=== PATIENT | male | born 1975 | race Two or more races ===

== ENCOUNTER → 2016-09-18 | Outpatient (CLI) | payer BC ==
--- NOTE | 2016-09-18 16:57 | RAD ---
Scrotal ultrasound 09/18/2016 Clinical history: Hematuria. Technique: Using a combination of real-time ultrasound imaging and color-flow and pulse upper imaging techniques, duplex evaluation of the scrotal sac and its contents was entered. Multiple images were obtained. Findings: Both testicles are within normal limits in size and echogenicity. The right testicle measures 4.4 x 3.4 x 2.2 cm in longitudinal, transverse, and AP dimensions. The left testicle measures 4.3 x 3.3 x 2.2 cm in size. No focal abnormality of either testicle is seen. Normal color flow and pulse Doppler imaging to both testicles is noted. Both epididymal heads are within normal limits in size and echogenicity. No hydrocele or varicocele is seen. Impression: Negative study.
== END | disposition home or self-care (01) ==
LOC: US 14:01
PROVIDERS: ATTEND Family Medicine
DX: R31.9 Hematuria, unspecified (principal)
CPT/HCPCS: 76870

== ENCOUNTER → 2017-02-22 | Outpatient (CLI) | payer BC ==
--- NOTE | 2017-02-22 15:03 | RAD ---
Indication pain. AP and lateral views of the left knee were obtained. There are no significant degenerative changes. No acute finding is seen. There is a small joint effusion.
== END | disposition home or self-care (01) ==
LOC: RAD 13:22
PROVIDERS: ATTEND Family Medicine
DX: M25.562 Pain in left knee (principal); M25.462 Effusion, left knee
CPT/HCPCS: 73560

== ENCOUNTER 2018-06-14 04:05 | Emergency (ER) | payer BC ==
[~2018-06-14] VITALS: Ht 175.3 cm; Wt 77.6 kg
[2018-06-14 04:14] VITALS: BP 155/74
[2018-06-14] MEDS ORDERED: IBUP100O25 PO (04:35)
--- NOTE | 2018-06-14 04:35 | PHYS DOC ---
Past Medical History Past Medical History: No Pertinent History Past Surgical History: No Surgical History Alcohol Use: Occasionally Drug Use: None Adult General Chief Complaint Chief Complaint: SORE THROAT HPI HPI Patient is a 43 year old male who presents with sore throat. This started approximately 48 hours ago and has been getting worse over time. Patient was seen at an urgent care yesterday, had 2 strep test performed that were both negative by his report. He reports increased pain with swallowing. Patient reports difficulty swallowing Tylenol due to the discomfort. He denies any nasal congestion. Reports increased pain with swallowing any foods.[] Review of Systems Review of Systems Constitutional: Denies chills, reports subjective fever [] Eyes: Denies change in visual acuity, redness, or eye pain [] HENT: See history of present illness, no nasal congestion[] Respiratory: Denies cough or shortness of breath [] Cardiovascular: No chest pain or palpitations[] GI: Denies abdominal pain, nausea, vomiting, bloody stools or diarrhea [] : Denies dysuria or hematuria [] Musculoskeletal: Denies back pain or joint pain [] Integument: Denies rash or skin lesions [] Neurologic: Denies headache, focal weakness or sensory changes [] Endocrine: Denies polyuria or polydipsia [] All other systems were reviewed and found to be within normal limits, except as documented in this note. Current Medications Current Medications Current Medications Medications (Trade) Dose Ordered Sig/Natali Start Time Stop Time Status Last Admin Dose Admin Dexamethasone Sodium Phosphate (Decadron) 10 mg 1X ONCE 06/14/18 05:00 06/14/18 05:01 Penicillin G Benzathine (Bicillin L-A) 1,200,000 unit 1X ONCE 06/14/18 05:00 06/14/18 05:01 Allergies Allergies Allergies Coded Allergies Type Severity Reaction Last Updated Verified No Known Drug Allergies 06/14/18 No Physical Exam Physical Exam Constitutional: Well developed, well nourished, no acute distress, non-toxic appearance. [] HENT: Normocephalic, atraumatic, bilateral external ears normal, oropharynx moist, enlarged tonsils, bilaterally symmetric, uvula midline, no trismus, nose normal. [] Eyes: PERRLA, EOMI, conjunctiva normal, no discharge. [] Neck: Normal range of motion, no tenderness, supple, no stridor. Anterior and posterior chain lymphadenopathy bilaterally, no nuchal rigidity[] Cardiovascular:Heart rate regular rhythm, no murmur [] Lungs & Thorax: Bilateral breath sounds clear to auscultation [] Abdomen: Bowel sounds normal, soft, no tenderness, no masses, no pulsatile masses. No hepato-or splenomegaly[] Skin: Warm, dry, no erythema, no rash. [] Back: No tenderness, no CVA tenderness. [] Extremities: No tenderness, no cyanosis, no clubbing, ROM intact, no edema. [] Neurologic: Alert and oriented X 3, normal motor function, normal sensory function, no focal deficits noted. [] Psychologic: Affect normal, judgement normal, mood normal. [] Current Patient Data Vital Signs Vital Signs Date Time Temp Pulse Resp B/P (MAP) Pulse Ox O2 Delivery O2 Flow Rate FiO2 06/14/18 04:14 98.3 110 20 155/74 (101) 99 Room Air 98.3 EKG EKG [] Radiology/Procedures Radiology/Procedures [] Course & Med Decision Making Course & Med Decision Making Pertinent Labs and Imaging studies reviewed. (See chart for details) Medical decision making: Patient has a pharyngitis that will be addressed with antibiotics and steroids, there is no evidence of airway compromise. No evidence of peritonsillar abscess, meningitis, nor retropharyngeal abscess.[] Dragon Disclaimer Dragon Disclaimer This electronic medical record was generated, in whole or in part, using a voice recognition dictation system. Departure Departure Impression: Primary Impression: Pharyngitis Disposition: 01 HOME, SELF-CARE Condition: GOOD Referrals: RAMON AGGARWAL MD (PCP) Follow-up in 2 days Patient Instructions: Viral and Bacterial Pharyngitis Additional Instructions: Drink plenty of fluids. Follow-up with your regular doctor in 2 days. Return to the ER if worsening discomfort, and able to swallow, or any other concerns. Scripts Ibuprofen (IBUPROFEN) 100 Mg/5 Ml Oral.susp 400 MG PO Q6HRS PRN for MILD PAIN / TEMP, #120 MISC Prov: MATHIEUKELLIFAUSTO LOGAN 06/14/18 Problem Qualifiers Primary Impression: Pharyngitis Pharyngitis/tonsillitis etiology: unspecified etiology Qualified Codes: J02.9 - Acute pharyngitis, unspecified FAUSTO PRINCE DO Jun 14, 2018 04:35
[2018-06-14] MEDS ORDERED: DEXAMETHASONE SOD PHOS 20 MG/5 ML VIAL. IM ONE (05:00)
[2018-06-14] MEDS ORDERED: PENICILLIN G BENZATHINE LA 1,200,000 UNIT/2 ML DISP.SYRIN. IM ONE (05:00)
== END 2018-06-14 04:45 | disposition home or self-care (01) ==
LOC: ER 04:05
DX: J02.9 Acute pharyngitis, unspecified (principal); R59.0 Localized enlarged lymph nodes
CPT/HCPCS: 96372; 99283; J0561; J1100

== ENCOUNTER 2018-06-16 14:41 | Emergency (ER) | payer BC ==
[~2018-06-16] VITALS: Ht 175.3 cm; Wt 75.3 kg
[~2018-06-16 14:41] MED LIST: IBUP100O25 PO
[2018-06-16] MEDS ORDERED: methylPREDNISolone SOD SUCC PF 125 MG/2 ML VIAL. IV ONE (15:30)
[2018-06-16] MEDS ORDERED: IV NORMAL SALINE 1000ML BAG 1,000 ML IV ONE (15:30)
[2018-06-16] MEDS ORDERED: KETOROLAC 30 MG/ML VIAL. IV ONE (15:30)
[2018-06-16] MEDS ORDERED: IOHEXOL 300 MG/ML 100ML VIAL. IV ONE (15:30)
--- NOTE | 2018-06-16 15:39 | PHYS DOC ---
Past Medical History Past Medical History: No Pertinent History Past Surgical History: No Surgical History Alcohol Use: Occasionally Drug Use: None Adult General Chief Complaint Chief Complaint: FACE PROBLEM HPI HPI Patient is a 43 year old male who presents complaining of sore throat and swelling to the left side of his neck that began 5 days ago. Patient states he was seen at urgent care 5 days ago and head negative strep test. He states he was seen in the ED 3 days ago, given penicillin injection and Decadron. He states the swelling went down for that then the swelling began the next day. Patient states the swelling on the left side of the neck has increased significantly. Patient denies any difficulty breathing or swallowing though he states it's painful when he swallows. He states he was seen by the PCP in this send him to the ED for CT. Denies any fever coughing or congestion. Review of Systems Review of Systems Constitutional: Denies fever or chills [] Eyes: Denies change in visual acuity, redness, or eye pain [] HENT: Reports sore throat and left neck swelling. Denies nasal congestion Respiratory: Denies cough or shortness of breath [] Cardiovascular: No additional information not addressed in HPI [] GI: Denies abdominal pain, nausea, vomiting, bloody stools or diarrhea [] : Denies dysuria or hematuria [] Musculoskeletal: Denies back pain or joint pain [] Integument: Denies rash or skin lesions [] Neurologic: Denies headache, focal weakness or sensory changes [] All other systems were reviewed and found to be within normal limits, except as documented in this note. Current Medications Current Medications Current Medications Medications (Trade) Dose Ordered Sig/Natali Start Time Stop Time Status Last Admin Dose Admin Clindamycin Phosphate 50 ml @ 100 mls/hr 1X ONCE 06/16/18 16:45 06/16/18 17:14 DC 06/16/18 17:42 100 MLS/HR Info (CONTRAST GIVEN -- Rx MONITORING) 1 each PRN DAILY PRN 06/16/18 15:45 06/18/18 15:44 Iohexol (Omnipaque 300 Mg/ml) 70 ml 1X ONCE 06/16/18 15:30 06/16/18 15:31 DC 06/16/18 17:10 70 ML Ketorolac Tromethamine (Toradol 30mg Vial) 30 mg 1X ONCE 06/16/18 15:30 06/16/18 15:31 DC 06/16/18 16:05 30 MG Methylprednisolone Sodium Succinate (SOLU-Medrol 125MG VIAL) 125 mg 1X ONCE 06/16/18 15:30 06/16/18 15:31 DC 06/16/18 16:16 125 MG Sodium Chloride 1,000 ml @ 1,000 mls/hr 1X ONCE 06/16/18 15:30 06/16/18 16:29 DC 06/16/18 16:03 1,000 MLS/HR Allergies Allergies Allergies Coded Allergies Type Severity Reaction Last Updated Verified No Known Drug Allergies 06/14/18 No Physical Exam Physical Exam Constitutional: Well developed, well nourished, no acute distress, non-toxic appearance. [] HENT: Normocephalic, atraumatic, bilateral external ears normal, oropharynx moist, no oral exudates, nose normal. [] airway is open Posterior pharynx with mild erythema. No exudate +3 left anterior cervical adenopathy. +1 right anterior cervical adenopathy Eyes: PERRLA, EOMI, conjunctiva normal, no discharge. [] Neck: Normal range of motion, no tenderness, supple, no stridor. [] Cardiovascular:Heart rate regular rhythm, no murmur [] Lungs & Thorax: Bilateral breath sounds clear to auscultation [] Abdomen: Bowel sounds normal, soft, no tenderness, no masses, no pulsatile masses. [] Skin: Warm, dry, no erythema, no rash. [] Back: No tenderness, no CVA tenderness. [] Extremities: No tenderness, no cyanosis, no clubbing, ROM intact, no edema. [] Neurologic: Alert and oriented X 3, normal motor function, normal sensory function, no focal deficits noted. [] Psychologic: Affect normal, judgement normal, mood normal. [] Current Patient Data Vital Signs Vital Signs Date Time Temp Pulse Resp B/P (MAP) Pulse Ox O2 Delivery O2 Flow Rate FiO2 06/16/18 18:00 76 20 99 06/16/18 17:30 134/71 (92) 06/16/18 15:18 98.6 Room Air 98.6 Lab Values Laboratory Tests Test 06/16/18 16:12 White Blood Count 13.5 x10^3/uL (4.0-11.0) H Red Blood Count 4.20 x10^6/uL (4.30-5.70) L Hemoglobin 13.3 g/dL (13.0-17.5) Hematocrit 37.6 % (39.0-53.0) L Mean Corpuscular Volume 90 fL (79-100) Mean Corpuscular Hemoglobin 32 pg (25-35) Mean Corpuscular Hemoglobin Concent 35 g/dL (31-37) Red Cell Distribution Width 13.3 % (11.5-14.5) Platelet Count 326 x10^3/uL (140-400) Neutrophils (%) (Auto) 77 % (31-73) H Lymphocytes (%) (Auto) 16 % (24-48) L Monocytes (%) (Auto) 8 % (0-9) Eosinophils (%) (Auto) 0 % (0-3) Basophils (%) (Auto) 0 % (0-3) Neutrophils # (Auto) 10.3 x10^3uL (1.8-7.7) H Lymphocytes # (Auto) 2.1 x10^3/uL (1.0-4.8) Monocytes # (Auto) 1.0 x10^3/uL (0.0-1.1) Eosinophils # (Auto) 0.0 x10^3/uL (0.0-0.7) Basophils # (Auto) 0.0 x10^3/uL (0.0-0.2) Erythrocyte Sedimentation Rate 85 (0-15) H Sodium Level 141 mmol/L (136-145) Potassium Level 3.7 mmol/L (3.5-5.1) Chloride Level 104 mmol/L (98-107) Carbon Dioxide Level 27 mmol/L (21-32) Anion Gap 10 (6-14) Blood Urea Nitrogen 20 mg/dL (8-26) Creatinine 1.3 mg/dL (0.7-1.3) Estimated GFR (Cockcroft-Gault) 60.2 Glucose Level 94 mg/dL (70-99) Calcium Level 9.3 mg/dL (8.5-10.1) C-Reactive Protein, Quantitative 210.3 mg/L (0-3.3) H Laboratory Tests 06/16/18 16:12 Laboratory Tests 06/16/18 16:12 EKG EKG [] Radiology/Procedures Radiology/Procedures []PROCEDURE: CT SOFT TISSUE NECK W/CONTRAST Examination: CT SOFT TISSUE NECK W/CONTRAST History: lt.jaw swelling; eval for abscess; Omni 300, 70ml Comparison/Correlation: None Findings: Axial images of the neck were obtained following IV contrast. Sagittal and coronal reformatted images were provided. Globes and optic nerves are unremarkable. Visualized paranasal sinuses are unremarkable. Maxillary sinus ostia are patent. Temporal bones or joints are unremarkable. Bony structures are unremarkable. Bilateral lower central incisor dental implants are present right lower lateral incisor dental implant also seen. Periapical lucency is noted involving the right central and lateral incisors. Nasopharynx is symmetric. The upper oropharynx is symmetric. At the lower oropharynx and hypopharyngeal region, soft tissue swelling is noted. This is predominantly inferior to the level of the tonsils. There is a gas and slightly high density fluid collection Subjacent to the left side of the hyoid bone. Gaseous component extends superiorly medial to the hyoid bone. This process measures approximately 2.5 cm transverse by 2.5 cm anteroposterior by approximately 2.8 cm longitudinal. Enlarged left submandibular gland is present with surrounding stranding. Thickening of the left platysma noted. There is no loculated collection. Soft tissue thickening of left sided musculature inferior to the level of the hyoid bone and superficial to the thyroid cartilage noted. There is no well-demarcated collection. Significant edema however is evident involving the left sternohyoid and left thyrohyoid muscles. Edema of the neck is noted superficial to these muscles as well. No enlarged thoracic lymph nodes. Multiple left jugular chain lymph nodes are present but not enlarged. Bony structures are unremarkable. Edema of the left false cord is noted. Right false cord unremarkable. True vocal cords are unremarkable. Thyroid gland is unremarkable. Partially visualized lung apices unremarkable. Impression: Abscess collection is noted about the left hyoid bone. Significant gaseous component. Underlying necrotizing component is presumed. Inflammatory changes noted involving left submandibular gland which is enlarged. Edema of the soft tissues of the left side of the neck identified. Dental implants are evident. Periapical lucencies involving the lower right central and lower right lateral incisor noted. Findings raise question periodontal disease. Correlation with previous exams is recommended however in this patient who has undergone dental implant placement. Electronically signed by: Davonte Muhammad MD (06/16/2018 5:46 PM) [facility] DICTATED and SIGNED BY: CRISTINA PULIDO MD DATE: 06/16/18 1731 Course & Med Decision Making Course & Med Decision Making Pertinent Labs and Imaging studies reviewed. (See chart for details) This is a 43-year-old male patient sent to the ED today by the PCP to rule out peritonsillar abscess. Patient has had sore throat and neck swelling for six days. Patient has been to urgent care, has been seen in the ED 3 days ago. Symptoms have gotten worse. Vitals on arrival temperature 98.6 heart rate 80, respirations 16 on room air, blood pressure 128/78, O2 sats 99% on room air. Patient has no respiratory distress. Patient was given Solu-Medrol, and clindamycin and arrival to the ED. CBC with a WBC of 13.5 and a left shift, sedimentation rate 85, CRP to 10, BMP with no acute findings, CT of the neck soft tissue Abscess collection is noted about the left hyoid bone. Significant gaseous component. Underlying necrotizing component is presumed. Inflammatory changes noted involving left submandibular gland which is enlarged. Edema of the soft tissues of the left side of the neck identified. Dental implants are evident. Periapical lucencies involving the lower right central and lower right lateral incisor noted. Findings raise question periodontal disease. Correlation with previous exams is recommended however in this patient who has undergone dental implant placement. 18:54 Dr. Dixon Oseguera accepted patient at [facility]. They requested we wait until they call us back with a bed before patient is transferred. Dragon Disclaimer Dragon Disclaimer This electronic medical record was generated, in whole or in part, using a voice recognition dictation system. Departure Departure Impression: Primary Impression: Necrotizing fasciitis Additional Impression: Abscess, peritonsillar Disposition: 05 TRANSFER OTHER Condition: STABLE Referrals: RAMON AGGARWAL MD (PCP) Problem Qualifiers FARIDEHTANYA YEE Jun 16, 2018 15:39
[2018-06-16] MEDS ORDERED: CONTRAST GIVEN. MC PRN (15:45)
[2018-06-16 16:26] LABS: BASO % 0 % (0-3); EOS % 0 % (0-3); HEMATOCRIT 37.6 % (39.0-53.0); HEMOGLOBIN 13.3 g/dL (13.0-17.5); LYMPH # 2.1 x10^3/uL (1.0-4.8); LYMPH % 16 % (24-48); MEAN CORPUSCULAR HEMOGLOBIN 32 pg (25-35); MEAN CORPUSCULAR HGB CONC 35 g/dL (31-37); MEAN CORPUSCULAR VOLUME 90 fL (79-100); MONO % 8 % (0-9); NEUT # 10.3 x10^3uL (1.8-7.7); NEUT % 77 % (31-73); PLATELET COUNT 326 x10^3/uL (140-400); RED CELL DISTRIBUTION WIDTH 13.3 % (11.5-14.5); WHITE BLOOD COUNT 13.5 x10^3/uL (4.0-11.0)
[2018-06-16 16:34] LABS: CALCIUM 9.3 mg/dL (8.5-10.1); CREATININE 1.3 mg/dL (0.7-1.3); GFR 60.2; POTASSIUM 3.7 mmol/L (3.5-5.1)
[2018-06-16 16:37] LABS: C-REACTIVE PROTEIN 210.3 mg/L (0-3.3)
[2018-06-16] MEDS ORDERED: CLINDAMYCIN 900MG PREMIX 50 ML IV ONE (16:45)
[2018-06-16 17:30] VITALS: BP 134/71
--- NOTE | 2018-06-16 17:50 | RAD ---
Examination: CT SOFT TISSUE NECK W/CONTRAST History: lt.jaw swelling; eval for abscess; Omni 300, 70ml Comparison/Correlation: None Findings: Axial images of the neck were obtained following IV contrast. Sagittal and coronal reformatted images were provided. Globes and optic nerves are unremarkable. Visualized paranasal sinuses are unremarkable. Maxillary sinus ostia are patent. Temporal bones or joints are unremarkable. Bony structures are unremarkable. Bilateral lower central incisor dental implants are present right lower lateral incisor dental implant also seen. Periapical lucency is noted involving the right central and lateral incisors. Nasopharynx is symmetric. The upper oropharynx is symmetric. At the lower oropharynx and hypopharyngeal region, soft tissue swelling is noted. This is predominantly inferior to the level of the tonsils. There is a gas and slightly high density fluid collection Subjacent to the left side of the hyoid bone. Gaseous component extends superiorly medial to the hyoid bone. This process measures approximately 2.5 cm transverse by 2.5 cm anteroposterior by approximately 2.8 cm longitudinal. Enlarged left submandibular gland is present with surrounding stranding. Thickening of the left platysma noted. There is no loculated collection. Soft tissue thickening of left sided musculature inferior to the level of the hyoid bone and superficial to the thyroid cartilage noted. There is no well-demarcated collection. Significant edema however is evident involving the left sternohyoid and left thyrohyoid muscles. Edema of the neck is noted superficial to these muscles as well. No enlarged thoracic lymph nodes. Multiple left jugular chain lymph nodes are present but not enlarged. Bony structures are unremarkable. Edema of the left false cord is noted. Right false cord unremarkable. True vocal cords are unremarkable. Thyroid gland is unremarkable. Partially visualized lung apices unremarkable. Impression: Abscess collection is noted about the left hyoid bone. Significant gaseous component. Underlying necrotizing component is presumed. Inflammatory changes noted involving left submandibular gland which is enlarged. Edema of the soft tissues of the left side of the neck identified. Dental implants are evident. Periapical lucencies involving the lower right central and lower right lateral incisor noted. Findings raise question periodontal disease. Correlation with previous exams is recommended however in this patient who has undergone dental implant placement. Electronically signed by: Davonte Muhammad MD (06/16/2018 5:46 PM) [facility]
== END 2018-06-16 20:39 | disposition short-term general hospital (02) ==
LOC: ER 14:41
DX: J36 Peritonsillar abscess (principal); M72.6 Necrotizing fasciitis; R22.1 Localized swelling, mass and lump, neck
CPT/HCPCS: 36415; 70491; 80048; 85025; 85651; 86140; 87040; 96365; 96375; 99285; J1885; J2930; J3490; J7030; Q9967

== ENCOUNTER 2018-08-17 20:48 | Emergency (ER) | payer BC ==
[~2018-08-17] VITALS: Ht 170.2 cm; Wt 79.8 kg
[2018-08-17 23:18] VITALS: BP 160/70
[2018-08-17] MEDS ORDERED: HYDROcodone/APAP 5/325MG 1 TAB TABLET PO ONE (23:30)
[2018-08-17] MEDS ORDERED: LIDOCAINE 2% 20 ML VIAL. IJ ONE (23:30)
[2018-08-18 00:37] LABS: BASO # 0.1 x10^3/uL (0.0-0.2); BASO % 0 % (0-3); EOS % 0 % (0-3); HEMATOCRIT 42.4 % (39.0-53.0); HEMOGLOBIN 14.2 g/dL (13.0-17.5); LYMPH # 1.8 x10^3/uL (1.0-4.8); LYMPH % 12 % (24-48); MEAN CORPUSCULAR HEMOGLOBIN 30 pg (25-35); MEAN CORPUSCULAR HGB CONC 33 g/dL (31-37); MEAN CORPUSCULAR VOLUME 91 fL (79-100); MONO # 0.8 x10^3/uL (0.0-1.1); MONO % 6 % (0-9); NEUT # 11.9 x10^3uL (1.8-7.7); NEUT % 82 % (31-73); PLATELET COUNT 313 x10^3/uL (140-400); RED BLOOD COUNT 4.67 x10^6/uL (4.30-5.70); RED CELL DISTRIBUTION WIDTH 13.5 % (11.5-14.5); WHITE BLOOD COUNT 14.5 x10^3/uL (4.0-11.0)
[2018-08-18 00:53] LABS: CALCIUM 9.1 mg/dL (8.5-10.1); CREATININE 1.1 mg/dL (0.7-1.3); GFR 73.1
[2018-08-18 01:01] LABS: ALBUMIN 3.7 g/dL (3.4-5.0); ALBUMIN/GLOBULIN RATIO 0.8 (1.0-1.7); TOTAL BILIRUBIN 0.3 mg/dL (0.2-1.0); TOTAL PROTEIN 8.2 g/dL (6.4-8.2); URIC ACID 8.3 mg/dL (3.5-7.2)
--- NOTE | 2018-08-18 02:08 | RAD ---
Indication:swelling TECHNIQUE: 3 views of the left knee COMPARISON:02/22/2017. FINDINGS/ impression: No acute fracture or dislocation. Small suprapatellar effusion. Stable nonspecific calcific density projecting superior to the fibular head. Electronically signed by: Carlos Grant DO (08/18/2018 2:05 AM) [id number]
[2018-08-18 02:20] LABS: BF CLARITY CLOUDY; BF COLOR YELLOW; BF SOURCE SYNOVIAL
[2018-08-18 02:21] LABS: BF MON % 6 %; BF PMN % 94 %; BF RBC COUNT 50 /cmm (Not Established); BF WBC COUNT 45600 /cmm (Not Established)
[2018-08-18] MEDS ORDERED: COLC0.6T34 PO (02:36)
[2018-08-18] MEDS ORDERED: HYDR-3164 PO (02:36)
--- NOTE | 2018-08-18 03:10 | PHYS DOC ---
Past Medical History Past Medical History: No Pertinent History Past Surgical History: No Surgical History Alcohol Use: Occasionally Drug Use: None Adult General Chief Complaint Chief Complaint: KNEE SWELLING HPI HPI Patient is a 43 year old M P/W KNEE PAIN AND SWLLING X THREE DAYS NO FEVER. NO HX OF DIABETES NO TRAUMA. MOM HAS GOUT. PAIN MODERATE NONRADIATING LOCALIZED LEFT KNEE Review of Systems Review of Systems Constitutional: Denies fever or chills [] Eyes: Denies change in visual acuity, redness, or eye pain [] HENT: Denies nasal congestion or sore throat [] Respiratory: Denies cough or shortness of breath [] Cardiovascular: No additional information not addressed in HPI [] Integument: Denies rash or skin lesions [] Neurologic: Denies headache, focal weakness or sensory changes [] Endocrine: Denies polyuria or polydipsia [] All other systems were reviewed and found to be within normal limits, except as documented in this note. Current Medications Current Medications Current Medications Medications (Trade) Dose Ordered Sig/Natali Start Time Stop Time Status Last Admin Dose Admin Acetaminophen/ Hydrocodone Bitart (Lortab 5/325) 2 tab 1X ONCE 08/17/18 23:30 08/17/18 23:31 DC 08/17/18 23:30 2 TAB Lidocaine HCl 20 ml 1X ONCE 08/17/18 23:30 08/17/18 23:31 DC 08/17/18 23:30 20 ML Allergies Allergies Allergies Coded Allergies Type Severity Reaction Last Updated Verified No Known Drug Allergies 06/14/18 No Physical Exam Physical Exam Constitutional: Well developed, well nourished, no acute distress, non-toxic appearance. [] HENT: Normocephalic, atraumatic, bilateral external ears normal, oropharynx moist, no oral exudates, nose normal. [] Eyes: PERRLA, EOMI, conjunctiva normal, no discharge. [] Abdomen: Bowel sounds normal, soft, no tenderness, no masses, no pulsatile masses. [] Skin: Warm, dry, no erythema, no rash. [] NO ERYTHEMA AT THE KNEE Back: No tenderness, no CVA tenderness. [] Extremities: EFFUSION NOTED TOT HE LEFT KNEE, ROM SLIGHTLY REDUCED DUE TO SWELLING BUT ACTUALLY ONLY MILD PAIN WITH ROM PASSIVELY TO 150 DEGREES. Neurologic: Alert and oriented X 3, normal motor function, normal sensory function, no focal deficits noted. [] Psychologic: Affect normal, judgement normal, mood normal. [] Current Patient Data Vital Signs Vital Signs Date Time Temp Pulse Resp B/P (MAP) Pulse Ox O2 Delivery O2 Flow Rate FiO2 08/18/18 02:40 87 16 98 Room Air 08/17/18 23:18 99.5 160/70 (100) 99.5 Lab Values Laboratory Tests Test 08/17/18 00:20 08/17/18 23:40 White Blood Count 14.5 x10^3/uL (4.0-11.0) H Red Blood Count 4.67 x10^6/uL (4.30-5.70) Hemoglobin 14.2 g/dL (13.0-17.5) Hematocrit 42.4 % (39.0-53.0) Mean Corpuscular Volume 91 fL (79-100) Mean Corpuscular Hemoglobin 30 pg (25-35) Mean Corpuscular Hemoglobin Concent 33 g/dL (31-37) Red Cell Distribution Width 13.5 % (11.5-14.5) Platelet Count 313 x10^3/uL (140-400) Neutrophils (%) (Auto) 82 % (31-73) H Lymphocytes (%) (Auto) 12 % (24-48) L Monocytes (%) (Auto) 6 % (0-9) Eosinophils (%) (Auto) 0 % (0-3) Basophils (%) (Auto) 0 % (0-3) Neutrophils # (Auto) 11.9 x10^3uL (1.8-7.7) H Lymphocytes # (Auto) 1.8 x10^3/uL (1.0-4.8) Monocytes # (Auto) 0.8 x10^3/uL (0.0-1.1) Eosinophils # (Auto) 0.0 x10^3/uL (0.0-0.7) Basophils # (Auto) 0.1 x10^3/uL (0.0-0.2) Sodium Level 140 mmol/L (136-145) Potassium Level 4.0 mmol/L (3.5-5.1) Chloride Level 101 mmol/L (98-107) Carbon Dioxide Level 27 mmol/L (21-32) Anion Gap 12 (6-14) Blood Urea Nitrogen 19 mg/dL (8-26) Creatinine 1.1 mg/dL (0.7-1.3) Estimated GFR (Cockcroft-Gault) 73.1 BUN/Creatinine Ratio 17 (6-20) Glucose Level 110 mg/dL (70-99) H Uric Acid 8.3 mg/dL (3.5-7.2) H Calcium Level 9.1 mg/dL (8.5-10.1) Total Bilirubin 0.3 mg/dL (0.2-1.0) Aspartate Amino Transferase (AST) 5 U/L (15-37) L Alanine Aminotransferase (ALT) 26 U/L (16-63) Alkaline Phosphatase 87 U/L (46-116) Total Protein 8.2 g/dL (6.4-8.2) Albumin 3.7 g/dL (3.4-5.0) Albumin/Globulin Ratio 0.8 (1.0-1.7) L Body Fluid Source Synovial Body Fluid Color Yellow Body Fluid Clarity Cloudy Body Fluid Nucleated Cells 62409 /cmm (Not Body Fluid Mononuclear WBCs (%) 6 % Body Fluid Polymorphonuclear Cells 94 % Body Fluid Total RBCs Counted 50 /cmm (Not Established) Laboratory Tests 08/17/18 00:20 Laboratory Tests 08/17/18 00:20 EKG EKG [] Radiology/Procedures Radiology/Procedures [] Impressions: NO FRACTURE Course & Med Decision Making Course & Med Decision Making Pertinent Labs and Imaging studies reviewed. (See chart for details) []KNEE SWELLING GOUT V. LESS LIKELY SEPTIC JOINT (NO DEFINITE RISK FACTORS FOR THIS) VERBAL CONESNT OBTAINED; AREA PREPPED AND DRAPED USUAL STERILE FASHION, LIDO SUBQ, 20GA INSERTED INTO THE JOINT 60 ML STRAW COLORED FLUID REMOVED EASILY, PT TOLERATED WELL. BAND AID APPLIED. NOTED 45K WBC NOTED ELEV URIC ACID WBC PERIPH 14.5 99.5 TEMP PT FEELS MUCH MUCH BETTER AFTER REMOVAL OF FLUID ABLE TO RANGE THE KNEE BETTER. SUSPECT GOUT MOST LIKELY , HAD DISCUSSION IN DETAIL 10-15 MIN WITH PT AND MOTHER ABOUT PENDING CULTURES, HAVE NOT YET DEFINITIVELY RULED OUT SEPTIC JOINT. COME BACK RIGHT AWAY FOR FEVER, AND COME BACK ANYWAY HERE OR PMD SATURDAY SO WE CAN FOLLOW UP THE CULTURES FACE TO FACE. HE IS AGREEABLE. TRIAL OF COLCHICINE AND NORCO PT AND MOM AGREEABLE Estefanía Disclaimer Dragon Disclaimer This electronic medical record was generated, in whole or in part, using a voice recognition dictation system. Departure Departure Impression: Primary Impression: Gout Disposition: HOME, SELF-CARE Condition: STABLE Patient Instructions: Gout, Bulp-at-Atdk Scripts Hydrocodone/Apap 5-325 (NORCO 5-325 TABLET) 1 Each Tablet 1-2 EACH PO PRN Q6HRS PRN for PAIN, #15 as needed for pain Prov: KADEEM ALLEN MD 08/18/18 Colchicine (COLCRYS) 0.6 Mg Tablet 0.6 MG PO UD, #8 TAB take two tablets at the first sign of gout flare, followed by one tablet one hour later. on day 2 through six, take one tablet once daily. Prov: KADEEM ALLEN MD 08/18/18 KADEEM ALLEN MD Aug 18, 2018 03:10
== END 2018-08-18 02:47 | disposition home or self-care (01) ==
LOC: ER 20:48
DX: M10.9 Gout, unspecified (principal); M25.462 Effusion, left knee
CPT/HCPCS: 20610; 36415; 73562; 80053; 84550; 85025; 87040; 87071; 87075; 89050; 89060; 99284; J2001